=== PATIENT | male | born 1980 | race African-American/Black ===

== ENCOUNTER 2017-01-22 21:01 | Emergency (ER) | payer OTHER ==
[~2017-01-22] VITALS: Ht 160 cm; Wt 68.0 kg
[~2017-01-22 21:01] MED LIST: ALBUTEROL SULF8.5 GM INH; PROMETHAZINE-D118 ML ORAL
[2017-01-22] MEDS ORDERED: Lidocaine 1% MPF 10mg/ml 5ml ONE (21:42)
[2017-01-22] MEDS ORDERED: IBUPROFEN600 MG ORAL (21:44)
[2017-01-22 21:45] VITALS: BP 121/78
[2017-01-22] MEDS ORDERED: Azithromycin 250mg tab ORAL ONE (21:45)
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
[2017-01-22 22:18] VITALS: BP 121/78
--- NOTE | 2017-01-23 15:37 | Diagnostic Imaging Report ---
Indications: PAIN Technique: 3 views of the right foot Comparison: None Findings: There is mild hallux longus. There is mild hammertoe deformity of the second through fifth digits. No acute fractures. No dislocations. Joint spaces are preserved. Impression: No acute process This agrees with the preliminary interpretation provided by the emergency room physician
== END 2017-01-22 22:18 | disposition home or self-care (01) ==
LOC: EMR 21:47
DX: N34.2 Other urethritis (principal); S93.601A Unspecified sprain of right foot, initial encounter; X58.XXXA Exposure to other specified factors, initial encounter; Y92.89 Other specified places as the place of occurrence of the external cause
CPT/HCPCS: 73630; 96372; 99283; J0696; Q0144

== ENCOUNTER 2017-04-02 10:34 | Emergency (ER) | payer OTHER ==
[~2017-04-02] VITALS: Ht 167.6 cm; Wt 63.5 kg
[~2017-04-02 10:34] MED LIST changes: +IBUPROFEN600 MG ORAL
[2017-04-02] MEDS ORDERED: [UNRECOGNIZED DRUG - REMARK] (10:54)
[2017-04-02] MEDS ORDERED: [UNRECOGNIZED DRUG - REMARK] (10:54)
[2017-04-02 11:00] VITALS: BP 101/71
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
[2017-04-02] MEDS ORDERED: ANUSOL-HC25 MG RECTAL (11:13)
[2017-04-02] MEDS ORDERED: LACTULOSE20 GM/301 ORAL (11:13)
[2017-04-02] MEDS ORDERED: AMERICAINE28 G1 TP (11:13)
== END 2017-04-02 11:19 | disposition home or self-care (01) ==
LOC: EMR 11:15
DX: K64.9 Unspecified hemorrhoids (principal); F17.200 Nicotine dependence, unspecified, uncomplicated
CPT/HCPCS: 99284